=== PATIENT | female | born 1960 | race Two or more races ===

== ENCOUNTER 2020-10-14 09:38 | Inpatient (IN) | payer OTHER ==
[2020-10-12 10:49] LABS: BASOPHILS % (AUTO) 1 % (0-1); EOSINOPHILS % (AUTO) 1 % (1-7); LYMPHOCYTES % (AUTO) 26 % (22-44); MEAN CORPUSCULAR HEMOGLOBIN 30.7 pg (27.0-34.8); MEAN CORPUSCULAR HGB CONC 33.6 g/dL (32.4-35.8); MEAN PLATELET VOLUME 8.2 fL (7.4-10.4); MONOCYTES % (AUTO) 9 % (2-9); NEUTROPHILS % (AUTO) 62 % (42-75); PLATELET COUNT 427 x10^3/uL (130-400); RED BLOOD COUNT 4.34 x10^6/uL (3.82-5.3); RED CELL DISTRIBUTION WIDTH 15.3 % (9.6-15.2)
[2020-10-12 10:59] LABS: ALANINE AMINOTRANSFERASE 32 U/L (12-78); ALBUMIN 3.9 g/dL (3.4-5.0); ANION GAP 7 mmol/L (5-15); CALCIUM 9.1 mg/dL (8.5-10.1); CHLORIDE 109 mmol/L (98-107); CREATININE 0.54 mg/dL (0.55-1.02)
[2020-10-12 11:01] LABS: ALKALINE PHOSPHATASE 65 U/L (45-117); BILIRUBIN,TOTAL 0.5 mg/dL (0.2-1.0); TOTAL PROTEIN 8.2 g/dL (6.4-8.2)
[~2020-10-14] VITALS: Ht 154.9 cm; Wt 64.0 kg
[~2020-10-14 09:38] MED LIST: CEFD300C37 PO; CELE200C PO; CHOL10003 PO; GABA300C PO; HYDR200T72 PO; METR-90 PO; ONDA4TAB7 PO; OXYC1TAB14 PO; PRED2.5T PO; Vitamin C PO
[2020-10-14] MEDS ORDERED: NEOM500T PO (10:51)
[2020-10-14] MEDS ORDERED: LACTATED RINGERS 1,000 ML IV SCH (11:00)
[2020-10-14] MEDS ORDERED: CHLORHEXIDINE 15 ML UDC PO ONE (11:00)
[2020-10-14 11:23] VITALS: BP 127/84
[2020-10-14] MEDS ORDERED: MIDAZOLAM 1 MG/ML, 2ML ONE (11:36)
[2020-10-14] MEDS ORDERED: FENTANYL PF 250 MCG/5ML ONE (11:36)
[2020-10-14] MEDS ORDERED: EPINEPHRINE 1 MG/ML, 1ML ONE ×2 (12:16→13:46)
[2020-10-14] MEDS ORDERED: BUPIVACAINE/PF 0.5% ONE ×3 (12:16→13:46)
[2020-10-14] MEDS ORDERED: DIPHENHYDRAMINE 50 MG/ML, 1ML IVPush PRN ×2 (12:30→18:00)
[2020-10-14] MEDS ORDERED: OXYcodone 5 MG/5 ML ORAL.SOL UDC PO PRN (12:30)
[2020-10-14] MEDS ORDERED: LABETALOL 5MG/ML, 20ML IV PRN (12:30)
[2020-10-14] MEDS ORDERED: hydrALAzine 20 MG/ML, 1ML IV PRN (12:30)
[2020-10-14] MEDS ORDERED: MEPERIDINE/PF 25MG/0.5ML IVPush PRN (12:30)
[2020-10-14] MEDS ORDERED: ACETAMINOPHEN 325 MG TABLET PO PRN (12:30)
[2020-10-14] MEDS ORDERED: HALOPERIDOL 5 MG/ML IV PRN (12:30)
[2020-10-14] MEDS ORDERED: PROMETHAZINE 25 MG/ML, 1ML IVPush PRN (12:30)
[2020-10-14] MEDS ORDERED: INDOCYANINE GREEN 25 MG VIAL ONE (12:31)
[2020-10-14] MEDS ORDERED: FENTANYL PF 100 MCG/2ML ONE ×3 (14:24→16:12)
[2020-10-14] MEDS ORDERED: PHENYLEPHRINE 10 MG/ML ONE (14:35)
[2020-10-14] MEDS ORDERED: PROPOFOL 10 MG/ML, 20ML ONE (14:38)
[2020-10-14] MEDS ORDERED: GLYCOPYRROLATE 0.2MG/1ML, 5ML ONE (14:38)
[2020-10-14] MEDS ORDERED: ONDANSETRON 2MG/ML, 2ML ONE (14:38)
[2020-10-14] MEDS ORDERED: CEFAZOLIN 1,000 MG ONE (14:38)
[2020-10-14] MEDS ORDERED: DEXAMETHASONE 4 MG/ML, 1ML ONE (14:38)
[2020-10-14] MEDS ORDERED: ROCURONIUM 10MG/ML,5ML ONE (14:38)
[2020-10-14] MEDS ORDERED: NEOSTIGMINE 1 MG/ML, 10ML ONE (14:38)
[2020-10-14] MEDS ORDERED: SUCCINYLCHOLINE 20 MG/ML, 10ML ONE (14:38)
[2020-10-14] MEDS ORDERED: ACETAMINOPHEN 650 MG/20.3 ML UDC ONE (15:26)
[2020-10-14] MEDS ORDERED: OXYcodone 5 MG/5 ML ORAL.SOL UDC ONE (15:26)
[2020-10-14] MEDS: FENTANYL PF 100 MCG/2ML IV PRN ×4 (15:28→16:20)
[2020-10-14] MEDS ORDERED: HYDROmorphone 1 MG/ML, 1ML INJ ONE (15:44)
[2020-10-14] MEDS: HYDROmorphone 1 MG/ML, 1ML INJ IVPush PRN ×2 (15:47→15:56)
[2020-10-14 17:00] VITALS: BP 116/74
[2020-10-14] MEDS ORDERED: DIPHENHYDRAMINE 25 MG CAPSULE PO PRN (17:30)
[2020-10-14] MEDS: ACETAMINOPHEN 500 MG TABLET PO SCH (17:44)
[2020-10-14] MEDS: KETOROLAC 30 MG/1 ML IVPush SCH (17:44)
[2020-10-14] MEDS ORDERED: HALOPERIDOL 5 MG/ML IVPush PRN (18:00)
[2020-10-14] MEDS ORDERED: CALCIUM CARBONATE 500 MG TAB.CHEW PO PRN (18:00)
[2020-10-14] MEDS ORDERED: TRAZODONE 50MG TABLET PO PRN (18:00)
[2020-10-14] MEDS ORDERED: LORazepam 2 MG/ML, 1ML IVPush PRN (18:00)
[2020-10-14] MEDS ORDERED: MORPHINE SULFATE 4 MG/ML, 1ML IVPush PRN (18:00)
[2020-10-14] MEDS ORDERED: DEXAMETHASONE 4 MG/ML, 1ML IVPush PRN (18:00)
[2020-10-14] MEDS ORDERED: LORazepam 1MG TABLET PO PRN (18:00)
[2020-10-14] MEDS ORDERED: SCOPOLAMINE 1MG PATCH TD PRN (18:00)
[2020-10-14] MEDS: CEFTRIAXONE 2 GM in DEXTROSE 5% 50 ML IV SCH (18:32)
[2020-10-14 19:00] VITALS: BP 123/84
[2020-10-14] MEDS: METRONIDAZOLE PMX 500MG/100ML 100 ML IVPB SCH (19:07)
[2020-10-14] MEDS: SODIUM CHLORIDE FLUSH 3ML SYRINGE IVF SCH (21:00)
[2020-10-14] MEDS: OXYcodone IR 5MG TABLET PO PRN (21:06)
[2020-10-15 00:20] VITALS: BP 120/69
[2020-10-15] MEDS: ACETAMINOPHEN 500 MG TABLET PO SCH ×5 (00:28→23:49)
[2020-10-15] MEDS: KETOROLAC 30 MG/1 ML IVPush SCH ×5 (00:28→23:49)
[2020-10-15] MEDS: METRONIDAZOLE PMX 500MG/100ML 100 ML IVPB SCH ×3 (03:07→18:32)
[2020-10-15 03:23] LABS: BASOPHILS % (AUTO) 0 % (0-1); EOSINOPHILS % (AUTO) 0 % (1-7); LYMPHOCYTES % (AUTO) 8 % (22-44); MEAN CORPUSCULAR HEMOGLOBIN 30.4 pg (27.0-34.8); MEAN CORPUSCULAR HGB CONC 33.4 g/dL (32.4-35.8); MEAN PLATELET VOLUME 8.7 fL (7.4-10.4); MONOCYTES % (AUTO) 6 % (2-9); NEUTROPHILS % (AUTO) 85 % (42-75); PLATELET COUNT 356 x10^3/uL (130-400); RED BLOOD COUNT 4.32 x10^6/uL (3.82-5.3); RED CELL DISTRIBUTION WIDTH 15.4 % (9.6-15.2)
[2020-10-15 03:33] LABS: ALBUMIN 3.2 g/dL (3.4-5.0); ANION GAP 6 mmol/L (5-15); CALCIUM 8.8 mg/dL (8.5-10.1); CHLORIDE 109 mmol/L (98-107); CREATININE 0.52 mg/dL (0.55-1.02)
[2020-10-15 03:41] VITALS: BP 109/74
[2020-10-15] MEDS: OXYcodone IR 5MG TABLET PO PRN ×3 (04:58→14:28)
[2020-10-15 06:53] VITALS: BP 102/68
[2020-10-15] MEDS: SODIUM CHLORIDE FLUSH 3ML SYRINGE IVF SCH ×2 (08:09→21:00)
[2020-10-15] MEDS: ENOXAPARIN 40 MG/0.4 ML SQ SCH (08:09)
[2020-10-15 14:58] VITALS: BP 131/80
[2020-10-15] MEDS: CEFTRIAXONE 2 GM in DEXTROSE 5% 50 ML IV SCH (17:32)
[2020-10-15 19:10] VITALS: BP 110/67
[2020-10-16 01:43] VITALS: BP 117/60
[2020-10-16] MEDS: OXYcodone IR 5MG TABLET PO PRN ×3 (02:51→22:32)
[2020-10-16] MEDS: METRONIDAZOLE PMX 500MG/100ML 100 ML IVPB SCH ×3 (02:51→18:36)
[2020-10-16] MEDS: ONDANSETRON 2MG/ML, 2ML IV PRN ×3 (02:54→15:36)
[2020-10-16 02:58] LABS: BASOPHILS % (AUTO) 1 % (0-1); EOSINOPHILS % (AUTO) 1 % (1-7); LYMPHOCYTES % (AUTO) 16 % (22-44); MEAN CORPUSCULAR HEMOGLOBIN 30.5 pg (27.0-34.8); MEAN CORPUSCULAR HGB CONC 33.6 g/dL (32.4-35.8); MONOCYTES % (AUTO) 7 % (2-9); NEUTROPHILS % (AUTO) 76 % (42-75); PLATELET COUNT 285 x10^3/uL (130-400); RED BLOOD COUNT 3.74 x10^6/uL (3.82-5.3); RED CELL DISTRIBUTION WIDTH 15.4 % (9.6-15.2)
[2020-10-16 03:08] LABS: ANION GAP 8 mmol/L (5-15); CALCIUM 8.2 mg/dL (8.5-10.1); CHLORIDE 103 mmol/L (98-107); CREATININE 0.52 mg/dL (0.55-1.02)
[2020-10-16] MEDS: KETOROLAC 30 MG/1 ML IVPush SCH ×3 (05:45→17:28)
[2020-10-16] MEDS: ACETAMINOPHEN 500 MG TABLET PO SCH ×3 (05:45→17:29)
[2020-10-16 07:15] VITALS: BP 114/67
[2020-10-16] MEDS: ENOXAPARIN 40 MG/0.4 ML SQ SCH (08:29)
[2020-10-16] MEDS: SODIUM CHLORIDE FLUSH 3ML SYRINGE IVF SCH ×2 (08:30→22:32)
[2020-10-16 14:10] VITALS: BP 111/68
[2020-10-16] MEDS: CEFTRIAXONE 2 GM in DEXTROSE 5% 50 ML IV SCH (17:28)
[2020-10-16 18:56] VITALS: BP 127/77
[2020-10-17] MEDS: ACETAMINOPHEN 500 MG TABLET PO SCH ×2 (00:14→08:31)
[2020-10-17] MEDS: KETOROLAC 30 MG/1 ML IVPush SCH ×3 (00:14→12:16)
[2020-10-17 01:41] VITALS: BP 123/64
[2020-10-17 02:59] LABS: BASOPHILS % (AUTO) 0 % (0-1); EOSINOPHILS % (AUTO) 1 % (1-7); LYMPHOCYTES % (AUTO) 12 % (22-44); MEAN CORPUSCULAR HEMOGLOBIN 30.9 pg (27.0-34.8); MEAN CORPUSCULAR HGB CONC 33.5 g/dL (32.4-35.8); MEAN PLATELET VOLUME 8.5 fL (7.4-10.4); MONOCYTES % (AUTO) 7 % (2-9); NEUTROPHILS % (AUTO) 80 % (42-75); PLATELET COUNT 268 x10^3/uL (130-400); RED BLOOD COUNT 3.72 x10^6/uL (3.82-5.3); RED CELL DISTRIBUTION WIDTH 15.6 % (9.6-15.2)
[2020-10-17] MEDS: METRONIDAZOLE PMX 500MG/100ML 100 ML IVPB SCH ×2 (03:09→10:54)
[2020-10-17 03:11] LABS: ALBUMIN 2.9 g/dL (3.4-5.0); ANION GAP 5 mmol/L (5-15); CHLORIDE 106 mmol/L (98-107); CREATININE 0.43 mg/dL (0.55-1.02)
[2020-10-17 07:17] VITALS: BP 130/78
[2020-10-17] MEDS ORDERED: AMOX1TAB64 PO (08:30)
[2020-10-17] MEDS ORDERED: OXYC-302 PO (08:30)
[2020-10-17] MEDS: ENOXAPARIN 40 MG/0.4 ML SQ SCH (08:31)
[2020-10-17] MEDS: SODIUM CHLORIDE FLUSH 3ML SYRINGE IVF SCH (08:34)
[2020-10-17] MEDS: OXYcodone IR 5MG TABLET PO PRN (10:53)
[2020-10-17 12:02] VITALS: BP 125/73
== END 2020-10-17 13:00 | disposition home or self-care (01) | DRG 334 ==
LOC: ORIP 10:22 → 4NE 16:55 → DCLOUNGE 10-17 12:53
PROVIDERS: ADMIT Colon & Rectal Surgery; ATTEND Colon & Rectal Surgery
PROC: 0W9J40Z Drainage of Pelvic Cavity with Drainage Device, Percutaneous Endoscopic Approach (ICD-10-PCS; 2020-10-14)
PROC: 0DTP0ZZ Resection of Rectum, Open Approach (ICD-10-PCS; principal; 2020-10-14 12:30)
DX: K57.80 Diverticulitis of intestine, part unspecified, with perforation and abscess without bleeding (principal); N73.9 Female pelvic inflammatory disease, unspecified; Z20.822 Contact with and (suspected) exposure to COVID-19
CPT/HCPCS: 36415; S0020; 80048; 80053; 82040; 83735; 85025; 86850; 86900; 88307; 93005; C1729; G0378; J0171; J0690; J0696; J1100; J1170; J1650; J1885; J2250; J2405; J2704; J2710; J3010; U0005; J0330; J1200; J2370; J7120; J7512; U0003